=== PATIENT | male | born 1975 | race Caucasian/White ===

== ENCOUNTER 2020-05-28 10:59 | Emergency (ER) | payer BC ==
[~2020-05-28] VITALS: Ht 177.8 cm; Wt 147.4 kg
[2020-05-28] MEDS ORDERED: HYDCHL12.5 (11:09)
[2020-05-28] MEDS ORDERED: IBUP800 PO (12:55)
[2020-05-28] MEDS ORDERED: ASMANEX220 MC8 INH (13:56)
[2020-05-28] MEDS ORDERED: HYDCHL25 PO (13:56)
[2020-05-28] MEDS ORDERED: DEPO-TESTO200 MG/1 M IM (13:57)
== END 2020-05-28 14:25 | disposition home or self-care (01) ==
LOC: ER 10:59 → EDBD 10:59 → ER 14:25
DX: S83.91XA Sprain of unspecified site of right knee, initial encounter (principal); W01.0XXA Fall on same level from slipping, tripping and stumbling without subsequent striking against object, initial encounter
CPT/HCPCS: 29505; 73562-RT; 99283-25